=== PATIENT | male | born 1970 | race Caucasian/White ===

== ENCOUNTER 2017-12-12 20:08 | Inpatient (IN) | payer SELFPAY ==
[~2017-12-12] VITALS: Ht 167.6 cm; Wt 111.4 kg
[2017-12-12] MEDS ORDERED: METF500T4 PO (20:33)
[2017-12-12 20:38] LABS: GLUCOSE,POINT OF CARE 177 MG/DL (70-110)
[2017-12-12 21:04] LABS: BASOPHILS % (AUTO) 0.4 % (0.0-2.0); EOSINOPHILS % (AUTO) 1.6 % (1.0-6.0); HEMATOCRIT 40.9 % (41-53); HEMOGLOBIN 13.8 g/dL (13.5-17.5); LYMPHOCYTES # (AUTO) 1.2 K/uL (1.0-4.8); LYMPHOCYTES % (AUTO) 19.8 % (22.0-44.0); MEAN CORPUSCULAR HEMOGLOBIN 28.9 pg (26.0-34.0); MEAN CORPUSCULAR HGB CONC 33.6 G/dL (31.0-37.0); MEAN CORPUSCULAR VOLUME 86 fL (80-100); MONOCYTES # (AUTO) 0.3 K/uL (0.1-1.0); MONOCYTES % (AUTO) 4.8 % (2.0-9.0); NEUTROPHILS # (AUTO) 4.4 K/uL (1.8-7.7); NEUTROPHILS % (AUTO) 73.4 % (40.0-70.0); PLATELET COUNT (AUTO) 235 K/uL (150-450); RED BLOOD CELL COUNT(AUTO) 4.77 MIL/uL (4.50-5.90); RED CELL DISTRIBUTION WIDTH 14.7 % (11.5-14.5)
[2017-12-12 21:12] LABS: AMPHET/METH SCREEN,URINE POSITIVE (NEGATIVE); BARBITURATE SCREEN, URINE NEGATIVE (NEGATIVE); BENZODIAZEPINES SCREEN,URINE NEGATIVE (NEGATIVE); CANNABINOID SCREEN,URINE NEGATIVE (NEGATIVE); COCAINE SCREEN,URINE NEGATIVE (NEGATIVE); METHADONE SCREEN, URINE NEGATIVE (NEGATIVE); OPIATE SCREEN,URINE NEGATIVE (NEGATIVE)
[2017-12-12 21:13] LABS: ANION GAP 10 mmol/L (8-16); CARBON DIOXIDE 26 mmol/L (22-29); CHLORIDE 101 mmol/L (98-107); CREATININE 0.76 mg/dL (0.60-1.30); GLOMERULAR FILTR. RATE CALC > 60 mL/min (>60); GLUCOSE,RANDOM 201 mg/dL (70-110); SODIUM SERUM 137 mmol/L (136-145); UREA NITROGEN, BLOOD 16 mg/dL (7-18)
[2017-12-12 21:19] LABS: PHENCYCLIDINE SCREEN,URINE NEGATIVE (NEGATIVE)
[2017-12-12 21:19] LABS: ALANINE AMINOTRANSFERASE 49 U/L (12-78); ALBUMIN 4.2 g/dL (3.4-5.0); ALKALINE PHOSPHATASE 73 U/L (46-116); ASPARTATE AMINOTRANSFERASE 32 U/L (15-37); BILIRUBIN,TOTAL 1.2 mg/dL (0.1-1.0); TOTAL PROTEIN, SERUM 8.2 g/dL (6.4-8.2)
[2017-12-13 01:23] LABS: GLUCOSE,POINT OF CARE 158 MG/DL (70-110)
[2017-12-13] MEDS ORDERED: ZOLPIDEM TARTRATE 10 MG TABLET PO PRN (01:30)
[2017-12-13] MEDS: LORazepam 2 MG TABLET PO PRN ×2 (02:26→16:47)
[2017-12-13] MEDS: HALOPERIDOL 5 MG TABLET PO PRN ×2 (02:27→16:47)
[2017-12-13 04:50] VITALS: BP 136/76
[2017-12-13 04:52] LABS: GLUCOMETER DEV NAME(LOC) BV3N5; GLUCOSE,POINT OF CARE 158 MG/DL (70-110)
[2017-12-13] MEDS ORDERED: PNEUMOCOCCAL VACCINE POLYVALENT 0.5 ML VIAL [PPSV23] IM ONE (06:45)
[2017-12-13 08:09] VITALS: BP 143/89
[2017-12-13] MEDS ORDERED: GLUCAGON,HUMAN RECOMBINANT 1 MG VIAL IM PRN (08:45)
[2017-12-13] MEDS ORDERED: INSULIN LISPRO 100 UNITS/ML SQ PRN (08:45)
[2017-12-13 16:00] VITALS: BP 120/65
[2017-12-13] MEDS: RisperiDONE 0.5 MG TABLET PO SCH (16:47)
[2017-12-13 23:12] LABS: GLUCOMETER DEV NAME(LOC) BV3N5; GLUCOSE,POINT OF CARE 195 MG/DL (70-110)
[2017-12-14 06:16] VITALS: BP 129/79
[2017-12-14 06:18] LABS: GLUCOMETER DEV NAME(LOC) BV3N5; GLUCOSE,POINT OF CARE 134 MG/DL (70-110)
[2017-12-14] MEDS ORDERED: MetFORMIN HCL 500 MG TABLET PO SCH (07:00)
[2017-12-14 08:00] LABS: CHOL/HDL RATIO 5.2 (4.2-7.3)
[2017-12-14 08:34] VITALS: BP 120/70
[2017-12-14] MEDS: RisperiDONE 0.5 MG TABLET PO SCH ×2 (08:57→17:04)
[2017-12-14 16:00] VITALS: BP 121/66
[2017-12-14] MEDS ORDERED: METF500T4 PO (17:16)
[2017-12-14] MEDS ORDERED: RISP.5 PO (17:16)
== END 2017-12-14 17:20 | disposition home or self-care (01) | DRG 885 ==
LOC: EMS 20:08 → B3A 12-13 01:30
PROVIDERS: ADMIT Psychiatry & Neurology Psychiatry; ATTEND Psychiatry & Neurology Psychiatry
DX: F29 Unspecified psychosis not due to a substance or known physiological condition (principal); E11.9 Type 2 diabetes mellitus without complications; R45.851 Suicidal ideations; E78.00 Pure hypercholesterolemia, unspecified; F15.90 Other stimulant use, unspecified, uncomplicated; F32.9 Major depressive disorder, single episode, unspecified; F41.9 Anxiety disorder, unspecified; Z79.84 Long term (current) use of oral hypoglycemic drugs; Z91.19 Patient's noncompliance with other medical treatment and regimen; Z91.5 Personal history of self-harm; Z28.21 Immunization not carried out because of patient refusal
CPT/HCPCS: 82962; 90471; 99285; G0480